=== PATIENT | female | born 1995 | race Caucasian/White ===

== ENCOUNTER 2018-08-29 21:09 | Emergency (ER) | payer OTHER ==
[2018-08-29] MEDS ORDERED: Ibuprofen 800 MG TAB ONE (21:57)
== END 2018-08-29 21:59 | disposition home or self-care (01) ==
LOC: SCSER 21:09
DX: S09.90XA Unspecified injury of head, initial encounter (principal); F32.9 Major depressive disorder, single episode, unspecified; Z79.899 Other long term (current) drug therapy; W01.198A Fall on same level from slipping, tripping and stumbling with subsequent striking against other object, initial encounter